=== PATIENT | male | born 1995 | race Caucasian/White ===

== ENCOUNTER 2018-08-25 11:02 | Emergency (ER) | payer BC, MEDICAID ==
[~2018-08-25] VITALS: Ht 190.5 cm; Wt 80.0 kg
[2018-08-25] MEDS ORDERED: TETANUS, DIPHTHERIA, PERTUSSIS VAC/PF 0.5ML (>7YR OLD) IM ONE (14:15)
[2018-08-25 14:42] VITALS: BP 128/86
== END 2018-08-25 14:44 | disposition home or self-care (01) ==
LOC: EDBD 11:02 → ER 11:02
DX: S61.210A Laceration without foreign body of right index finger without damage to nail, initial encounter (principal); Z88.8 Allergy status to other drugs, medicaments and biological substances; W45.8XXA Other foreign body or object entering through skin, initial encounter; Y93.89 Activity, other specified; Y92.89 Other specified places as the place of occurrence of the external cause; Y99.8 Other external cause status
CPT/HCPCS: 12001; 90471; 90715; 99283